=== PATIENT | male | born 1965 | race Caucasian/White ===

== ENCOUNTER 2021-05-17 15:50 | Emergency (ER) | payer MEDICARE, SELFPAY ==
--- NOTE | ~2021-05-17 | CT_ITS ---
EXAMINATION: CT cervical spine wo con DATE: 05/17/2021 16:36 INDICATION: Left neck pain TECHNIQUE: Computed tomography (CT) of the cervical spine was performed without intravenous contrast. Automated exposure control and iterative reconstruction technique were employed. Exam dose: 470.68 mGy-cm total exam DLP. COMPARISON: None FINDINGS: Emphysematous changes are noted. Moderately severe degenerative disc disease is noted at C3-4, C4-5 and particularly C5-6 and C6-7. Uncovertebral joint spurring is noted in the mid and lower cervical spine, most pronounced at C5-6 an d C6-7. C1 and C2 are normally aligned and the odontoid process is intact. No fracture or dislocation or lock ed facet or prevertebral soft tissue swelling. . IMPRESSION: Cervical spondylosis Reviewed, dictated and finalized at [facility]. Reviewed, dictated and finalized at [facility]. IMPRESSION: Cervical spondylosis
[2021-05-17 15:56] VITALS: BP 148/88; PULSE 96; RESP 18; TEMP 36.5; O2SAT 94
[2021-05-17 16:59] LABS: Basophils Percent Auto 0.3 % (0.2-1.2); Eosinophils Absolute Auto 0.1 K/mm3 (0-0.3); Eosinophils Percent Auto 1.4 % (0-4.4); Hematocrit 47.9 % (42.0-52.0); Hemoglobin 15.5 g/dL (14.0-18.0); Immature Granulocyte Absolute 0.03 K/mm3 (0.00-0.031); Immature Granulocyte Percent A 0.3 % (0-0.5); Lymphocytes Absolute Auto 3.51 K/mm3 (0.9-3.2); Lymphocytes Percent Auto 34.8 % (18.3-44.2); Mean Corpuscular HGB Conc 32.4 g/dl (32-36); Mean Corpuscular Hemoglobin 30.5 pg (26-34); Mean Corpuscular Volume 94.3 fl (80-100); Mean Platelet Volume 10.8 fl (7.4-10.4); Monocytes Absolute Auto 1.1 K/mm3 (0.1-0.6); Monocytes Percent Auto 10.4 % (2.6-8.5); Neutrophils Absolute Auto 5.3 K/mm3 (1.3-6.7); Neutrophils Percent Auto 52.8 % (45.5-73.1); Platelet Count Result 199 k/mm3 (150-375); Red Blood Count 5.08 M/mm3 (4.6-6.20); Red Cell Distribution Width 12.6 % (11.5-14.5); White Blood Count 10.1 K/mm3 (4.5-10.0)
[2021-05-17 17:15] LABS: Anion Gap 6 mmol/L (8-16); Blood Urea Nitrogen 15 mg/dL (9-20); CRP 0.6 mg/dL (<1.0); Carbon Dioxide 32 mmol/L (22-30); Chloride 102 mmol/L (98-107); Estimated CRCL calculation 90 ml/min; Estimated Glomerular Filt Rate > 60; Glucose 94 mg/dL (75-110); Potassium 4.1 mmol/L (3.4-5.0); Sodium 140 mmol/L (137-145)
[2021-05-17 17:21] LABS: NT Pro B Type Natriuretic Pept 57 pg/mL (5-100)
--- NOTE | 2021-05-17 17:22 | ED.EXTPRO ---
HPI - Extremity Problem General Chief complaint: Extremity Problem,Nontraumatic Stated complaint: left arm, shoulder pain Time Seen by Provider: 05/17/21 16:08 Source: patient Mode of arrival: ambulatory Limitations: no limitations History of Present Illness HPI Narrative: 56-year-old with a history of COPD here with complaints of left-sided neck pain radiating into his left forearm. Patient states started 4 days ago. He states that his arm is on fire. He denies any trauma. No previous neck problems. MD Complaint: extremity pain Onset (ago): day(s) (4) Pain Consistency: intermittent Location: left Quality: burning Radiation: none Relieving factors: nothing Exacerbating factors: nothing Associated symptoms: denies other symptoms Related Data Allergies Allergy/AdvReac Type Severity Reaction Status Date / Time No Known Allergies Allergy Unverified 08/21/13 17:44 Review of Systems Review of Systems: All systems reviewed & are unremarkable except as noted in HPI and below Constitutional: Constitutional: Reports no additional constitutional complaints Eyes: Eyes: Reports no additional eye complaints ENT: Reports system reviewed and no additional complaints, except as documented Cardiovascular: Cardiovascular: Reports no additional cardiovascular complaints Respiratory: Respiratory: Reports no additional respiratory complaints Gastrointestinal: Gastrointestinal: Reports no additional gastrointestinal complaints Musculoskeletal: Musculoskeletal: Reports as per HPI Neurologic: Reports system reviewed and no additional complaints, except as documented Endocrine: Endocrine: Reports no additional endocrine complaints Exam Narrative: Exam Narrative: GENERAL: Well-appearing, well-nourished, and in no acute distress. HEAD: Normocephalic, atraumatic. EYES: PERRLA and EOMI. ENT: Nares clear, no rhinorrhea or epistaxis. Mucous membranes moist. NECK: Supple. As C-spine tenderness. CHEST: Clear to auscultation. No respiratory distress. HEART: Regular rate and rhythm. No murmur heard. Normal peripheral pulses. ABDOMEN: Soft, nontender, nondistended, normal active bowel sounds. EXTREMITIES: Normal range of motion. No edema. Both extremities have good tone good power and good bed setter SKIN: Warm, dry, no rash. NEURO: No focal deficits. Alert and oriented x3. PSYCH: Normal mood and affect. Course Course Emergency Course: Discussed CT findings with the patient. Advised him to take steroids as prescribed, follow-up with neurosurgery. Vital Signs Vital signs: Vital Signs Temperature 36.5 C 05/17/21 15:56 Pulse Rate 96 05/17/21 15:56 Respiratory Rate 18 05/17/21 15:56 Blood Pressure 148/88 H 05/17/21 15:56 Pulse Oximetry 94 05/17/21 15:56 Temperature 36.5 C 05/17/21 15:56 Pulse Rate 96 05/17/21 15:56 Respiratory Rate 18 05/17/21 15:56 Blood Pressure 148/88 H 05/17/21 15:56 Pulse Oximetry 94 05/17/21 15:56 MDM - Extremity (Nontraumatic) Lab Data Result diagrams: 05/17/21 16:49 05/17/21 16:49 Labs: Lab Results 05/17/21 05/17/21 Range/Units 16:49 16:49 WBC 10.1 H (4.5-10.0) K/mm3 RBC 5.08 (4.6-6.20) M/mm3 Hgb 15.5 (14.0-18.0) g/dL Hct 47.9 (42.0-52.0) % MCV 94.3 (80-100) fl MCH 30.5 (26-34) pg MCHC 32.4 (32-36) g/dl RDW 12.6 (11.5-14.5) % Plt Count 199 (150-375) k/mm3 MPV 10.8 H (7.4-10.4) fl Immature Gran % (Auto) 0.3 (0-0.5) % Neut % (Auto) 52.8 (45.5-73.1) % Lymph % (Auto) 34.8 (18.3-44.2) % [place] % (Auto) 10.4 H (2.6-8.5) % Eos % (Auto) 1.4 (0-4.4) % Baso % (Auto) 0.3 (0.2-1.2) % Lymph # (Auto) 3.51 H (0.9-3.2) K/mm3 [place] # (Auto) 1.1 H (0.1-0.6) K/mm3 Eos # (Auto) 0.1 (0-0.3) K/mm3 Baso # (Auto) 0.0 (0.0-0.1) K/mm3 Abs Immat Gran (auto) 0.03 (0.00-0.031) K/mm3 Absolute Neuts (auto) 5.3 (1.3-6.7) K/mm3 Absolute Nucleated RBC 0.0 (0.0-0.012) K/mm3 Nucl
[2021-05-17 17:43] VITALS: BP 148/92; PULSE 90; RESP 20; O2SAT 96
[2021-05-17] MEDS: MORPHINE SULFATE (*CRX) 4 MG/ML INJ (17:43)
[2021-05-17] MEDS: KETOROLAC 30 MG/ML VIAL (*BKC) IV PUSH (18:07)
== END 2021-05-17 18:10 | disposition home or self-care (01) ==
PROVIDERS: Emergency Provider Family Medicine; PCP Family Medicine
DX: M47.12 Other spondylosis with myelopathy, cervical region (principal); J44.9 Chronic obstructive pulmonary disease, unspecified
CPT/HCPCS: 36415; 72125; 80048; 83880; 85025; 86140; 96374; 96375; 99284; J1100; J1885; J2270

== ENCOUNTER 2022-11-10 11:21 | Inpatient (IN) | payer MEDICARE, SELFPAY ==
[2022-11-10] VITALS (21 sets, daily range): BP systolic 109–142; BP diastolic 66–95; PULSE 64–108; RESP 13–25; TEMP 36.2–37.8; O2SAT 84–99; BMI 30.7
--- NOTE | ~2022-11-10 | XR_ITS ---
EXAMINATION: XR chest 2V DATE: 11/10/2022 12:02 INDICATION: Shortness of breath. TECHNIQUE: Frontal and lateral views of the chest were obtained on 3 radiographs. COMPARISON: Chest 2 views 08/21/2013 FINDINGS: There is mild atelectasis in lingula. No pleural effusion or pneumothorax. The heart size i s normal. IMPRESSION: 1. Mild atelectasis in lingula. Reviewed, dictated and finalized at [facility]. [employer] MACHINE OPERATOR
--- NOTE | 2022-11-10 11:31 | ECG_ITS ---
Measurements Intervals [place] Rate: 105 P: 76 OK: 136 QRS: 71 QRSD: 88 T: 79 QT: 303 QTc: 402 Interpretive Statements SINUS TACHYCARDIA ABNORMAL RHYTHM ECG NO PREVIOUS ECG AVAILABLE FOR COMPARISON Electronically Signed On 11-10-2022 16:36:00 [employer] by Rolo Flores M.D.
[2022-11-10 12:06] LABS: Basophils Percent Auto 0.2 % (0.2-1.2); Eosinophils Percent Auto 0.2 % (0-4.4); Hematocrit 53.1 % (42.0-52.0); Hemoglobin 16.6 g/dL (14.0-18.0); Immature Granulocyte Absolute 0.11 K/mm3 (0.00-0.031); Immature Granulocyte Percent A 0.6 % (0-0.5); Lymphocytes Absolute Auto 2.04 K/mm3 (0.9-3.2); Lymphocytes Percent Auto 10.3 % (18.3-44.2); Mean Corpuscular HGB Conc 31.3 g/dl (32-36); Mean Corpuscular Hemoglobin 30.8 pg (26-34); Mean Corpuscular Volume 98.5 fl (80-100); Mean Platelet Volume 9.9 fl (7.4-10.4); Monocytes Absolute Auto 1.2 K/mm3 (0.1-0.6); Neutrophils Absolute Auto 16.3 K/mm3 (1.3-6.7); Neutrophils Percent Auto 82.7 % (45.5-73.1); Platelet Count Result 209 k/mm3 (150-375); Red Blood Count 5.39 M/mm3 (4.6-6.20); Red Cell Distribution Width 13.3 % (11.5-14.5); White Blood Count 19.7 K/mm3 (4.5-10.0)
[2022-11-10 12:15] LABS: Alanine Aminotransferase 35 U/L (6-50); Albumin Level 4.3 g/dL (3.5-5.1); Alkaline Phosphatase 61 U/L (38-126); Anion Gap 5 mmol/L (8-16); Aspartate Amino Transferase 23 U/L (17-59); Bilirubin,Total 0.8 mg/dL (0.2-1.3); Blood Urea Nitrogen 13 mg/dL (9-20); Calcium 8.7 mg/dL (8.4-10.2); Carbon Dioxide 31 mmol/L (22-30); Chloride 98 mmol/L (98-107); Estimated CRCL calculation 127 ml/min; Estimated Glomerular Filt Rate > 60; Glucose 102 mg/dL (65-110); Potassium 4.1 mmol/L (3.4-5.0); Sodium 134 mmol/L (137-145)
[2022-11-10 12:42] LABS: Influenza A QL RT-PCR Negative (Negative); Influenza B QL RT-PCR Negative (Negative); RSV RNA, RT-PCR Negative (Negative); SARS-CoV-2 RNA PCR Negative
--- NOTE | 2022-11-10 14:49 | ED.GENADULT ---
HPI - General Adult General Chief complaint: Upper Respiratory Infection Stated complaint: shortness of breath - on antibiotics Time Seen by Provider: 11/10/22 13:41 History of Present Illness HPI narrative: 57-year-old male history of COPD on 2 L of oxygen by nasal cannula presenting to the emergency department for evaluation of worsening respiratory symptoms over a 2-week. Patient states last week he was started on a Z-Trent by his primary care physician. He reports that he did have some minor improvement in his cough and shortness of breath but states last night he had a repeat worsening of symptoms. Patient reports having a thick green mucus sputum. Patient has also had to increase his oxygen requirement to 4 L. Patient states he also has increased effort with exertion. Patient denies any chest pain but does report shortness of breath. Patient denies any associated nausea vomiting or diarrhea. Related Data Home Medications Medication Instructions Recorded Confirmed albuterol 90 mcg/actuation aerosol 90 mcg inhalation Q4-6H PRN 11/10/22 11/10/22 inhaler Shortness Of Breath bupropion HCl 75 mg tablet 150 mg PO BID 11/10/22 11/10/22 fluticasone fur. 100 mcg-umeclid 1 inh inhalation DAILY 11/10/22 11/10/22 62.5 mcg-vilant 25 mcg inhalat.powder (Trelegy Ellipta) montelukast 10 mg tablet 10 mg PO HS 11/10/22 11/10/22 oxycodone-acetaminophen 10 mg-325 1 tablet PO Q4H PRN Pain 11/10/22 11/10/22 mg tablet Allergies Allergy/AdvReac Type Severity Reaction Status Date / Time No Known Allergies Allergy Unverified 11/10/22 11:22 Review of Systems Review of Systems: CONSTITUTIONAL: Low-grade fever, night sweats and fatigue EYES: Denies visual changes, redness, or discharge. ENT: Denies rhinorrhea, congestion, sore throat, or otalgia. CARDIOVASCULAR: Denies chest pain, palpitations, or edema. RESPIRATORY: Exertional shortness of breath GASTROINTESTINAL: Denies abdominal pain, nausea, vomiting, or diarrhea. GENITOURINARY: Denies dysuria or hematuria. SKIN: Denies rash or itching. MUSCULOSKELETAL: Denies back pain, joint pain, or myalgia. NEUROLOGIC: Denies headache, numbness, or weakness. [facility] Social History Social History Smoking packs per day: 1 Smoking cigarettes per day: 20.0 Years smoked: 30 Smoking pack-years: 30.00 Smoking status: Current every day smoker Tobacco type: cigarettes Alcohol intake: never Substance use: current Substance use type: painkillers Lack of Transportation: No Lack of Food: Never True Current Housing: I Have Housing Concerned About Future Housing: No Difficulty Paying Gas/Electric Bills: No Difficulty Paying for Meds: No Currently Unemployed: YES Education: High School Diploma/GED Difficulty w/ Childcare or Family Care: No Spiritual care concerns: No Exam Narrative: APPEARANCE: Well appearing, no pain, no distress, well-nourished. HEAD: normocephalic, atraumatic. EYES: PERRLA/EOMI, conjunctivae clear. NOSE: Normal no drainage NECK: Supple. No adenopathy, no masses. RESPIRATORY: Airway patent, respirations labored but speaking in full sentences. Distant lung sounds with wheezing in all lung powell CARDIOVASCULAR: Regular rate and rhythm without murmurs rubs or gallops. ABDOMINAL: Soft, nontender, nondistended, normal bowel sounds MUSCULOSKELETAL: Moves all extremities. Strength/ROM intact, No edema, No calf tenderness. NEURO: Alert. Cranial nerves II through XII intact. Grossly intact SKIN: Warm, dry. Normal Color Course Course Emergency Course: Patient was treated as a COPD exacerbation. Patient received a continuous neb of 10 mg of albuterol and still had persistent wheeze. Patient is normally on 2 L of oxygen by nasal cannula but is requiring 4 L. Even after his breathing treatment patient's pulse ox dropped to 87% when back on his home 2 L. Patient was started on antibiotics due to hi
[2022-11-10] MEDS: ALBUTEROL SULFATE NEB 2.5 MG/3 ML INH 10 MG INHALATION (15:04)
[2022-11-10] MEDS: SODIUM CHLORIDE 0.9% IV 1,000 ML 999 ML IV CONT (15:35)
[2022-11-10] MEDS: methylPREDNISolone SOD SUCC 125 MG VIAL IV PUSH (15:47)
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
[2022-11-10] MEDS: ALBUTEROL SULFATE NEB 2.5 MG/3 ML INH 5 MG INHALATION (23:23)
[2022-11-11] VITALS (10 sets, daily range): BP systolic 106–134; BP diastolic 62–81; PULSE 72–102; RESP 14–20; TEMP 36.6–37; O2SAT 94–99
[2022-11-11] MEDS: methylPREDNISolone SOD SUCC 125 MG VIAL 60 MG IV PUSH ×4 (01:20→17:23)
[2022-11-11] MEDS: MONTELUKAST SODIUM 10 MG TABLET PO ×2 (01:20→20:46)
[2022-11-11] MEDS: IPRATROPIUM BR 0.02% INH SOLN 0.5 MG/2.5 ML VIAL INHALATION ×3 (04:57→20:43)
[2022-11-11] MEDS: ALBUTEROL SULFATE NEB 2.5 MG/3 ML INH 5 MG INHALATION ×3 (04:57→20:43)
[2022-11-11 06:10] LABS: Hematocrit 48.9 % (42.0-52.0); Hemoglobin 15.1 g/dL (14.0-18.0); Mean Corpuscular HGB Conc 30.9 g/dl (32-36); Mean Corpuscular Hemoglobin 30.1 pg (26-34); Mean Corpuscular Volume 97.6 fl (80-100); Mean Platelet Volume 10.5 fl (7.4-10.4); Platelet Count Result 221 k/mm3 (150-375); Red Blood Count 5.01 M/mm3 (4.6-6.20); Red Cell Distribution Width 12.9 % (11.5-14.5); White Blood Count 13.8 K/mm3 (4.5-10.0)
[2022-11-11 06:27] LABS: Anion Gap 3 mmol/L (8-16); Blood Urea Nitrogen 16 mg/dL (9-20); CRP 5.3 mg/dL (<1.0); Calcium 8.5 mg/dL (8.4-10.2); Carbon Dioxide 35 mmol/L (22-30); Chloride 98 mmol/L (98-107); Estimated CRCL calculation 128 ml/min; Estimated Glomerular Filt Rate > 60; Glucose 144 mg/dL (65-110); Magnesium 2.2 mg/dL (1.6-2.3); Potassium 4.9 mmol/L (3.4-5.0); Sodium 136 mmol/L (137-145)
[2022-11-11 06:45] LABS: Procalcitonin 0.1 ng/mL
--- NOTE | 2022-11-11 08:10 | PM.IMPN ---
Progress Note: A&P Assessment and Plan (1) COPD exacerbation: Code(s): J44.1 - Chronic obstructive pulmonary disease with (acute) exacerbation Status: Acute Assessment and Plan: Patient presented to the ED c/o shortness of breath, purulent cough with increased sputum production, and recent URI. His grandson has similar symptoms. He was treated previously with PO prednisone and azithromycin outpatient. CXR suggests atelectasis. Likely precipitated by upper respiratory infection in addition to ongoing tobacco use. Given worsening shortness of breath and sputum color and quantity increase, continue empiric antibiotics- Rocephin 1 gram Q24 hours & Azithromycin 500 mg Q24 hours. He was previously treated with Azithromycin outpatient, however, leukocytosis has improved and will avoid making medication changes at this time. Continue scheduled short-actining bronchodilators and IV Solu-Medrol 60 Q6 hours. Mucinex and Cornet ordered to help mobilize secretions. Will trial mucomyst neb x1 for mucous mobilization. Wean oxygen as tolerated. (2) Tobacco abuse: Code(s): Z72.0 - Tobacco use Status: Acute Assessment and Plan: Smoking cessation is imperative and was discussed with the patient on admission. He reported multiple attempts in the past to quit smoking and has used nicotine patch, gum, Wellbutrin, etc. without success. He has cut back on his smoking significantly and is down to a pack a day from 3 packs per day. Start nicotine patch 21mg daily as he is requesting this now. (3) Chronic prescription opiate use: Code(s): Z79.891 - long term care administrator (current) use of opiate analgesic Status: Chronic Assessment and Plan: Chronic, stable. Continue oxycodone as prescribed for chronic neck pain. Plan Code status: full code Disposition: inpatient Discharge plan: home when symptoms improved. Time Spent With Patient Time with patient: 15 - 25 minutes Subjective Date/time seen: 11/11/22 08:10 His breathing is a little better, however, he still has dyspnea on exertion, cough and is on 4L NC. With a deep cough his sputum is brown-tinged and thick. No chest pain. He reports no prior history of heart disease, hypertension, hyperlipidemia, heart failure or PR and does not think he needs to be on a heart healthy diet. Review of Systems Review of Systems: All systems reviewed & are unremarkable except as noted in HPI and below Exam Narrative: General: No acute distress.? Well-developed adult male sitting up in bed. Mental Status/Psych: Awake, alert and oriented x4 with clear speech. Neutral mood and affect. Pleasant and cooperative. Skin: warm, dry and intact without rashes.? Fair turgor.? HEENT: Normocephalic. Sclera is non-icteric. EOM intact. PERRL. Grossly normal hearing. Oral mucosa moist.? Neck: Supple without lymphadenopathy. Trachea midline. No JVD. Heart: S1 and S2 regular rate and rhythm. No murmurs, gallops, or rubs auscultated. Chest: Respirations unlabored at rest. Lung sounds with wheezing in all powell. No rhonchi or crackles. Prolonged expiratory phase.? Abdomen: Soft, obese and non-tender to palpation.? Bowel sounds present in all 4 quadrants.? No suprapubic or CVA tenderness. Extremities:? Grossly normal ROM all extremities. No edema, erythema, calf tenderness. Radial and dorsalis pedis pulses +2 bilaterally. Neurological: No focal deficits. Cranial nerves 2-12 grossly intact.? No facial droop.? Muscle strength 5/5 in all extremities and equal. ? Objective Data Vital Signs Vital Signs: Vital Signs - 24 hr 11/10/22 11:27 11/10/22 13:43 11/10/22 13:43 Temperature 100.0 F H Pulse Rate 106 H 105 H Respiratory Rate 18 15 Blood Pressure 133/85 142/95 H Pulse Oximetry 96 94 96 Oxygen Delivery Nasal Cannula Nasal Cannula Oxygen Flow Rate 4 4 11/10/22 14:09 11/10/22 14:15 11/10/22 14:16 Temperature Pulse Rate 106 H 107 H 105 H Respiratory Rate 25 H 17 19 B
[2022-11-11] MEDS: ENOXAPARIN 40 MG/0.4 ML SYRINGE SUB-Q (08:50)
[2022-11-11] MEDS: guaiFENesin 12 HR 600 MG TABCR PO ×2 (08:50→20:50)
[2022-11-11] MEDS: NICOTINE (*PBKC) 21 MG PATCH 1 PATCH TRANSDERM (11:12)
[2022-11-11] MEDS: oxyCODONE/ACETAMINOPHEN (*CRX) 10-325 MG TABLET 1 TAB PO ×2 (12:50→20:46)
[2022-11-11] MEDS: ACETYLCYSTEINE 20% INHAL SOLN 800 MG/4 ML VIAL 200 MG INHALATION (15:39)
[2022-11-11] MEDS: buPROPion HCL 75 MG TABLET 150 MG PO (17:23)
[2022-11-12] VITALS (9 sets, daily range): BP systolic 114–142; BP diastolic 60–84; PULSE 69–108; RESP 14–18; TEMP 36.6–36.8; O2SAT 94–100
[2022-11-12] MEDS: methylPREDNISolone SOD SUCC 125 MG VIAL 60 MG IV PUSH ×5 (00:54→23:57)
[2022-11-12] MEDS: IPRATROPIUM BR 0.02% INH SOLN 0.5 MG/2.5 ML VIAL INHALATION ×3 (03:25→21:12)
[2022-11-12] MEDS: ALBUTEROL SULFATE NEB 2.5 MG/3 ML INH 5 MG INHALATION ×3 (03:25→21:12)
[2022-11-12 05:52] LABS: Basophils Percent Auto 0.1 % (0.2-1.2); Hematocrit 48.3 % (42.0-52.0); Hemoglobin 14.6 g/dL (14.0-18.0); Immature Granulocyte Absolute 0.11 K/mm3 (0.00-0.031); Immature Granulocyte Percent A 0.7 % (0-0.5); Lymphocytes Absolute Auto 0.89 K/mm3 (0.9-3.2); Lymphocytes Percent Auto 5.5 % (18.3-44.2); Mean Corpuscular HGB Conc 30.2 g/dl (32-36); Mean Corpuscular Hemoglobin 30.4 pg (26-34); Mean Corpuscular Volume 100.6 fl (80-100); Mean Platelet Volume 10.6 fl (7.4-10.4); Monocytes Absolute Auto 0.6 K/mm3 (0.1-0.6); Monocytes Percent Auto 3.7 % (2.6-8.5); Neutrophils Absolute Auto 14.5 K/mm3 (1.3-6.7); Platelet Count Result 232 k/mm3 (150-375); White Blood Count 16.1 K/mm3 (4.5-10.0)
[2022-11-12 06:03] LABS: Anion Gap 1 mmol/L (8-16); Blood Urea Nitrogen 17 mg/dL (9-20); Calcium 8.4 mg/dL (8.4-10.2); Carbon Dioxide 33 mmol/L (22-30); Chloride 98 mmol/L (98-107); Estimated CRCL calculation 147 ml/min; Estimated Glomerular Filt Rate > 60; Glucose 153 mg/dL (65-110); Potassium 4.7 mmol/L (3.4-5.0); Sodium 132 mmol/L (137-145)
[2022-11-12] MEDS: ENOXAPARIN 40 MG/0.4 ML SYRINGE SUB-Q (08:18)
[2022-11-12] MEDS: buPROPion HCL 75 MG TABLET 150 MG PO ×2 (08:18→16:44)
[2022-11-12] MEDS: NICOTINE (*PBKC) 21 MG PATCH 1 PATCH TRANSDERM (08:20)
[2022-11-12] MEDS: guaiFENesin 12 HR 600 MG TABCR PO ×2 (08:20→21:24)
[2022-11-12] MEDS: oxyCODONE/ACETAMINOPHEN (*CRX) 10-325 MG TABLET 1 TAB PO ×3 (09:29→21:24)
--- NOTE | 2022-11-12 16:31 | PM.IMPN ---
Progress Note: A&P Assessment and Plan (1) COPD exacerbation: Code(s): J44.1 - Chronic obstructive pulmonary disease with (acute) exacerbation Status: Acute Assessment and Plan: Patient presented to the ED c/o shortness of breath, purulent cough with increased sputum production, and recent URI. His grandson has similar symptoms. He was treated previously with PO prednisone and azithromycin outpatient. CXR suggests atelectasis. Likely precipitated by upper respiratory infection in addition to ongoing tobacco use. Given worsening shortness of breath and sputum color and quantity increase, continue empiric antibiotics- Rocephin 1 gram Q24 hours & Azithromycin 500 mg Q24 hours. He was previously treated with Azithromycin outpatient, however, leukocytosis has improved and will avoid making medication changes at this time. Continue scheduled short-acting bronchodilators and IV Solu-Medrol 60 Q6 hours. Mucinex and Cornet ordered to help mobilize secretions. Will trial mucomyst neb x1 for mucous mobilization. Wean oxygen as tolerated. Continue current management (2) Tobacco abuse: Code(s): Z72.0 - Tobacco use Status: Acute Assessment and Plan: Smoking cessation is imperative and was discussed with the patient on admission. He reported multiple attempts in the past to quit smoking and has used nicotine patch, gum, Wellbutrin, etc. without success. He has cut back on his smoking significantly and is down to a pack a day from 3 packs per day. Continue nicotine patch 21mg daily as he is requesting this now. (3) Chronic prescription opiate use: Code(s): Z79.891 - half-way (current) use of opiate analgesic Status: Chronic Assessment and Plan: Chronic, stable. Continue oxycodone as prescribed for chronic neck pain. Plan Code status: full code Disposition: inpatient Discharge plan: home when symptoms improved. Time Spent With Patient Time with patient: 15 - 25 minutes Subjective Date/time seen: 11/12/22 16:31 His breathing is improving. He has had an occasional productive cough with thick brown sputum. He still has shortness of breath with activity. No other new complaints. Review of Systems Review of Systems: All systems reviewed & are unremarkable except as noted in HPI and below Exam Narrative: General: No acute distress.?Non-toxic appearing. sitting up in bed. Mental Status/Psych: Awake, alert and oriented x4 with clear speech. Neutral mood and affect. Skin: warm, dry and intact without rashes.? Fair turgor.? HEENT: Sclera is non-icteric. Pupils equal and round. Oral mucosa moist.? Neck: Supple. No JVD. Heart: S1 and S2 regular rate and rhythm. No murmurs, gallops, or rubs auscultated. Chest: Respirations unlabored at rest. Lung sounds with end-expiratory wheezing in all powell. No rhonchi or crackles. Prolonged expiratory phase.? Abdomen: Soft, obese and non-tender to palpation.? Bowel sounds present in all 4 quadrants. Extremities:? Grossly normal ROM all extremities. No edema, erythema, calf tenderness. Radial and dorsalis pedis pulses +2 bilaterally. Neurological: No focal deficits. Cranial nerves 2-12 grossly intact.? No facial droop.? Muscle strength 5/5 in all extremities and equal. ? Objective Data Vital Signs Vital Signs: Vital Signs - 24 hr 11/11/22 20:47 11/11/22 20:47 11/11/22 23:38 Temperature 97.8 F Pulse Rate 95 96 79 Respiratory Rate 20 20 14 Blood Pressure 123/71 Pulse Oximetry 96 99 Oxygen Delivery Nasal Cannula Oxygen Flow Rate 4 Fraction of Inspired Oxygen 28 11/11/22 20:59 11/12/22 03:27 11/12/22 06:24 Temperature 97.8 F Pulse Rate 94 96 69 Respiratory Rate 20 16 16 Blood Pressure 114/60 Pulse Oximetry 97 Oxygen Delivery Oxygen Flow Rate Fraction of Inspired Oxygen 11/12/22 14:47 11/12/22 14:00 11/12/22 15:06 Temperature 98.1 F Pulse Rate 97 108 H 96 Respiratory Rate 18 18 18 Blood Pressur
[2022-11-12] MEDS: ACETYLCYSTEINE 20% INHAL SOLN 800 MG/4 ML VIAL 200 MG INHALATION (21:11)
[2022-11-12] MEDS: MONTELUKAST SODIUM 10 MG TABLET PO (21:24)
[2022-11-13] VITALS (10 sets, daily range): BP systolic 117–134; BP diastolic 63–67; PULSE 72–100; RESP 14–20; TEMP 36.4–36.7; O2SAT 93–99
[2022-11-13] MEDS: ALBUTEROL SULFATE NEB 2.5 MG/3 ML INH 5 MG INHALATION ×3 (02:30→13:52)
[2022-11-13] MEDS: IPRATROPIUM BR 0.02% INH SOLN 0.5 MG/2.5 ML VIAL INHALATION ×4 (02:30→20:16)
[2022-11-13 05:57] LABS: Basophils Percent Auto 0.1 % (0.2-1.2); Hematocrit 47.6 % (42.0-52.0); Hemoglobin 14.6 g/dL (14.0-18.0); Immature Granulocyte Percent A 0.7 % (0-0.5); Lymphocytes Absolute Auto 0.83 K/mm3 (0.9-3.2); Lymphocytes Percent Auto 6.1 % (18.3-44.2); Mean Corpuscular HGB Conc 30.7 g/dl (32-36); Mean Corpuscular Hemoglobin 30.7 pg (26-34); Mean Corpuscular Volume 100.2 fl (80-100); Mean Platelet Volume 10.4 fl (7.4-10.4); Monocytes Absolute Auto 0.8 K/mm3 (0.1-0.6); Monocytes Percent Auto 5.5 % (2.6-8.5); Neutrophils Absolute Auto 11.9 K/mm3 (1.3-6.7); Neutrophils Percent Auto 87.6 % (45.5-73.1); Platelet Count Result 222 k/mm3 (150-375); Red Blood Count 4.75 M/mm3 (4.6-6.20); Red Cell Distribution Width 13.2 % (11.5-14.5); White Blood Count 13.6 K/mm3 (4.5-10.0)
[2022-11-13] MEDS: methylPREDNISolone SOD SUCC 125 MG VIAL 60 MG IV PUSH (06:11)
[2022-11-13 06:21] LABS: Anion Gap 2 mmol/L (8-16); Blood Urea Nitrogen 21 mg/dL (9-20); Calcium 8.4 mg/dL (8.4-10.2); Carbon Dioxide 36 mmol/L (22-30); Chloride 98 mmol/L (98-107); Estimated CRCL calculation 129 ml/min; Estimated Glomerular Filt Rate > 60; Glucose 160 mg/dL (65-110); Potassium 4.4 mmol/L (3.4-5.0); Sodium 136 mmol/L (137-145)
[2022-11-13] MEDS: guaiFENesin 12 HR 600 MG TABCR PO ×2 (08:20→20:56)
[2022-11-13] MEDS: buPROPion HCL 75 MG TABLET 150 MG PO ×2 (08:20→17:42)
[2022-11-13] MEDS: NICOTINE (*PBKC) 21 MG PATCH 1 PATCH TRANSDERM (08:21)
[2022-11-13] MEDS: ENOXAPARIN 40 MG/0.4 ML SYRINGE SUB-Q (08:21)
[2022-11-13] MEDS: oxyCODONE/ACETAMINOPHEN (*CRX) 10-325 MG TABLET 1 TAB PO ×2 (08:23→19:38)
[2022-11-13] MEDS: ACETYLCYSTEINE 20% INHAL SOLN 800 MG/4 ML VIAL 200 MG INHALATION (08:35)
--- NOTE | 2022-11-13 09:15 | PM.IMPN ---
Progress Note: A&P Assessment and Plan (1) Pseudomonas pneumonia: Qualifiers: Laterality: bilateral Lung location: unspecified part of lung Qualified Code(s): J15.1 - Pneumonia due to Pseudomonas Code(s): J15.1 - Pneumonia due to Pseudomonas Status: Acute Assessment and Plan: Sputum culture demonstrates pseudomonas growth. Rocephin & Azithromycin stopped 11/13/22 and changed to Levaquin 750 mg PO Q24 hours x 7 days (2) COPD exacerbation: Code(s): J44.1 - Chronic obstructive pulmonary disease with (acute) exacerbation Status: Acute Assessment and Plan: Patient presented to the ED c/o shortness of breath, purulent cough with increased sputum production, and recent URI. His grandson has similar symptoms. He was treated previously with PO prednisone and azithromycin outpatient. CXR suggests atelectasis. Likely precipitated by upper respiratory infection in addition to ongoing tobacco use. started on empiric antibiotics- Rocephin 1 gram Q24 hours & Azithromycin 500 mg Q24 hours given worsening shortness of breath and sputum color and quantity increased- Continue scheduled short-acting bronchodilators Wean IV solu-medrol Mucinex and Cornet ordered to help mobilize secretions. Continue mucomyst nebs BID mucous mobilization. Wean oxygen as tolerated. Antibiotics changed due to sputum culture results. (3) Tobacco abuse: Code(s): Z72.0 - Tobacco use Status: Acute Assessment and Plan: Smoking cessation is imperative and was discussed with the patient on admission. He reported multiple attempts in the past to quit smoking and has used nicotine patch, gum, Wellbutrin, etc. without success. He has cut back on his smoking significantly and is down to a pack a day from 3 packs per day. Continue nicotine patch 21mg daily as he is requesting this now. Continue current management. (4) Chronic prescription opiate use: Code(s): Z79.891 - longterm (current) use of opiate analgesic Status: Chronic Assessment and Plan: Chronic, stable. Continue oxycodone as prescribed for chronic neck pain. Plan Code status: full code Disposition: inpatient Discharge plan: home when symptoms improved. Possible discharge in 1-2 days Time Spent With Patient Time with patient: 15 - 25 minutes Subjective Date/time seen: 11/13/22 09:15 He breathing continues to improve. He thinks he is taking deeper breaths and his lungs are more open. Sputum production is minimal. He denies fevers, chills or rigors overnight. O2 was weaned to 3L today; 2L is his home requirement. Review of Systems Review of Systems: All systems reviewed & are unremarkable except as noted in HPI and below Exam Narrative: General: No acute distress.?Non-toxic appearing. sitting up in bed. Mental Status/Psych: Awake, alert and oriented x4 with clear speech. Neutral mood and affect. Skin: Tanned skin, mild facial flushing, warm, dry and intact without rashes.? Fair turgor.? HEENT: Sclera is non-icteric. Pupils equal and round. Oral mucosa moist.? Neck: No JVD. Heart: S1 and S2 regular rate and rhythm. No murmurs, gallops, or rubs auscultated. Chest: Respirations unlabored at rest. Lung sounds diminished in all powell. No wheezing, rhonchi or crackles. Prolonged expiratory phase.? Abdomen: Soft, obese and non-tender to palpation.? Bowel sounds present in all 4 quadrants. Extremities:? Grossly normal ROM all extremities. No edema, erythema, calf tenderness. Neurological: No focal deficits. No facial droop.? ? Objective Data Vital Signs Vital Signs: Vital Signs - 24 hr 11/12/22 14:47 11/12/22 14:00 11/12/22 15:06 Temperature 98.1 F Pulse Rate 97 108 H 96 Respiratory Rate 18 18 18 Blood Pressure 140/82 Pulse Oximetry 94 Oxygen Delivery Oxygen Flow Rate Fraction of Inspired Oxygen 11/12/22 21:12 11/12/22 21:18 11/12/22 21:19 Temperature 98.3 F Pulse Rate 89 89 91
[2022-11-13] MEDS: methylPREDNISolone SOD SUCC 40 MG VIAL IV PUSH ×2 (14:53→20:56)
[2022-11-13] MEDS: levoFLOXacin 750 MG TABLET PO (17:42)
[2022-11-13] MEDS: MONTELUKAST SODIUM 10 MG TABLET PO (20:56)
[2022-11-14] MEDS: ALBUTEROL SULFATE NEB 2.5 MG/3 ML INH INHALATION ×2 (03:16→08:42)
[2022-11-14 03:18] VITALS: PULSE 89; RESP 16
[2022-11-14 04:22] VITALS: BP 142/66; PULSE 61; RESP 20; TEMP 36.8; O2SAT 96
[2022-11-14 05:27] LABS: Basophils Percent Auto 0.1 % (0.2-1.2); Hematocrit 51.6 % (42.0-52.0); Hemoglobin 15.7 g/dL (14.0-18.0); Immature Granulocyte Percent A 0.7 % (0-0.5); Lymphocytes Absolute Auto 1.33 K/mm3 (0.9-3.2); Lymphocytes Percent Auto 8.8 % (18.3-44.2); Mean Corpuscular HGB Conc 30.4 g/dl (32-36); Mean Corpuscular Hemoglobin 30.5 pg (26-34); Mean Corpuscular Volume 100.4 fl (80-100); Mean Platelet Volume 10.2 fl (7.4-10.4); Monocytes Absolute Auto 0.9 K/mm3 (0.1-0.6); Monocytes Percent Auto 6.1 % (2.6-8.5); Neutrophils Absolute Auto 12.8 K/mm3 (1.3-6.7); Neutrophils Percent Auto 84.3 % (45.5-73.1); Platelet Count Result 223 k/mm3 (150-375); Red Blood Count 5.14 M/mm3 (4.6-6.20); Red Cell Distribution Width 13.1 % (11.5-14.5); White Blood Count 15.2 K/mm3 (4.5-10.0)
[2022-11-14 05:44] LABS: Anion Gap 3 mmol/L (8-16); Blood Urea Nitrogen 19 mg/dL (9-20); Calcium 8.9 mg/dL (8.4-10.2); Carbon Dioxide 39 mmol/L (22-30); Chloride 93 mmol/L (98-107); Estimated CRCL calculation 114 ml/min; Estimated Glomerular Filt Rate > 60; Glucose 127 mg/dL (65-110); Potassium 4.4 mmol/L (3.4-5.0); Sodium 135 mmol/L (137-145)
[2022-11-14] MEDS: methylPREDNISolone SOD SUCC 40 MG VIAL IV PUSH (06:00)
[2022-11-14] MEDS: IPRATROPIUM BR 0.02% INH SOLN 0.5 MG/2.5 ML VIAL INHALATION (08:40)
[2022-11-14 08:42] VITALS: PULSE 92; RESP 18; O2SAT 94
[2022-11-14] MEDS: ACETYLCYSTEINE 20% INHAL SOLN 800 MG/4 ML VIAL 200 MG INHALATION (08:42)
--- NOTE | 2022-11-14 09:35 | PM.DS ---
DS: Admitting Diagnosis Discharge Date 11/14/2022 0935 Admitting Diagnosis COPD exacerbation Tobacco abuse Chronic prescription opiate use DS: Discharge Diagnosis Discharge Diagnosis (1) Pseudomonas pneumonia: Qualifiers: Laterality: bilateral Lung location: unspecified part of lung Qualified Code(s): J15.1 - Pneumonia due to Pseudomonas Code(s): J15.1 - Pneumonia due to Pseudomonas Status: Acute Assessment and Plan: Sputum culture demonstrated pseudomonas growth. Rocephin & Azithromycin stopped 11/13/22 and changed to Levaquin 750 mg PO Q24 hours x 7 days (2) COPD exacerbation: Code(s): J44.1 - Chronic obstructive pulmonary disease with (acute) exacerbation Status: Acute Assessment and Plan: Patient presented to the ED c/o shortness of breath, purulent cough with increased sputum production, and recent URI-like symptoms. His grandson has similar symptoms. He was treated previously with PO prednisone and azithromycin outpatient. CXR suggested atelectasis. Likely precipitated by upper respiratory infection in addition to ongoing tobacco use. started on empiric antibiotics- Rocephin 1 gram Q24 hours & Azithromycin 500 mg Q24 hours given worsening shortness of breath and sputum color and quantity increased on admission. Continued scheduled short-acting bronchodilators Treated with IV solu-medrol 60 mg Q6 hours, weaned once wheezing improving. Mucinex and Cornet ordered to help mobilize secretions. Treated with mucomyst nebs BID mucous mobilization. Wean oxygen as tolerated. Antibiotics changed due to sputum culture results. (3) Tobacco abuse: Code(s): Z72.0 - Tobacco use Status: Acute Assessment and Plan: Smoking cessation is imperative and was discussed with the patient on admission. He reported multiple attempts in the past to quit smoking and has used nicotine patch, gum, Wellbutrin, etc. without success. He has cut back on his smoking significantly and is down to a pack a day from 3 packs per day. Treated nicotine patch 21mg daily as he is requesting this now. (4) Chronic prescription opiate use: Code(s): Z79.891 - [facility] (current) use of opiate analgesic Status: Chronic Assessment and Plan: Chronic, stable. Continue oxycodone as prescribed for chronic neck pain. DS: Summary Hospital Course Reason for hospitalization: cough and shortness of breath Hospital Course: uQinton Chinchilla is a 57-year-old male smoker with COPD on home O2 2L [place] who presented to the emergency department from home for evaluation of cough, fever, and shortness of breath. He reported not feeling well for approximately 2 weeks with cough and shortness of breath. He reported completing a Z-Trent and a course of prednisone recently without much benefit. He continued to have a productive cough with thick, green-yellow sputum, poor appetite, nausea, occasional diarrhea, temperature to 101?, and increasing dyspnea on lesser and lesser exertion with wheezing. He tested negative for COVID in the last week prior to admission and he was negative for COVID, influenza, and RSV in the ED. His grandchildren have had similar symptoms. He had a low-grade temperature on arrival to ED with stable vital signs. Aside from a WBC of 19.7 his labs were unremarkable. Chest x-ray showed mild atelectasis. He was given IV Solu-Medrol and a nebulizer treatment with some improvement, although he still remained symptomatic and requiring increased supplemental O2. He was admitted to the medical floor and treated with IV solu-medrol 60 mg Q6 hours, duonebs Q4 hours, IV Rocephin 1 gram Q24 hours and IV azithromycin 500 mg Q24 hours. His WBC trended down and he reported mild improvement in symptoms on hospital day 2, therefore, antibiotics were continued without change. Sputum culture was obtained and showed pseudomonas gorwth. He was transitioned to oral Levaquin 750 mg PO Q24 horus x 7 days on 12
[2022-11-14] MEDS: guaiFENesin 12 HR 600 MG TABCR PO (09:36)
[2022-11-14] MEDS: diphenhydrAMINE HCl CAP 25 MG CAPSULE PO (09:36)
[2022-11-14] MEDS: ENOXAPARIN 40 MG/0.4 ML SYRINGE SUB-Q (09:36)
[2022-11-14] MEDS: LORATADINE 10 MG TABLET PO (09:36)
[2022-11-14] MEDS: buPROPion HCL 75 MG TABLET 150 MG PO (09:36)
[2022-11-14] MEDS: NICOTINE (*PBKC) 21 MG PATCH 1 PATCH TRANSDERM (09:36)
[2022-11-14] MEDS: oxyCODONE/ACETAMINOPHEN (*CRX) 10-325 MG TABLET 1 TAB PO (09:37)
[2022-11-14 09:40] VITALS: O2SAT 94
[2022-11-14 22:14] LABS: Mycoplasma IgM Antibody Titer 199 U/mL (<770)
[2022-11-17 19:38] LABS: Legionella pneumophila Ag Ur Not Detected (Not Detected)
== END 2022-11-14 14:07 | disposition home or self-care (01) | DRG 178 ==
LOC: ANHED 17:07 → ANH2MED 11-11 02:34
PROVIDERS: Physician Assistant; Admitting Provider Internal Medicine; Emergency Provider Emergency Medicine; PCP Family Medicine; Visit Provider Nurse Practitioner Family
DX: J15.1 Pneumonia due to Pseudomonas (principal); J44.0 Chronic obstructive pulmonary disease with (acute) lower respiratory infection; J44.1 Chronic obstructive pulmonary disease with (acute) exacerbation; F17.210 Nicotine dependence, cigarettes, uncomplicated; Z20.822 Contact with and (suspected) exposure to COVID-19; Z79.891 Long term (current) use of opiate analgesic; Z99.81 Dependence on supplemental oxygen; Z90.49 Acquired absence of other specified parts of digestive tract
CPT/HCPCS: 36415; 71046; 80048; 80053; 83735; 84145; 85025; 85027; 86140; 86738; 87040; 87070; 87077; 87081; 87186; 87205; 87449; 87637; 87899; 93005; 94640; 94667; 94668; 96361; 96365; 96367; 96375; 99285; A9270; J0456; J0696; J1650; J2920; J2930; J7030